=== PATIENT | female | born 1990 | race Caucasian/White ===

== ENCOUNTER 2019-12-05 09:38 | Day surgery (SDC) | payer OTHER, SELFPAY ==
[2019-12-05 05:18] VITALS: BMI 39.5
[2019-12-05 10:00] LABS: MANUAL DIFF FLAG NO
[2019-12-05 10:07] LABS: Basophils Absolute Auto 0.1 X10*3/uL (0.0-0.2); Basophils Percent Auto 0.7 % (0-2); Eosinophils Absolute Auto 0.1 X10*3/uL (0.0-0.4); Hemoglobin 11.3 g/dl (12.0-16.0); Imm Gran Abs Auto 0.03 X10*3/uL (0.00-0.03); Imm Gran Pct Auto 0.3 % (0.0-0.4); Lymphocytes Absolute Auto 2.5 X10*3/uL (1.2-4.9); Lymphocytes Percent Auto 24.6 % (20-40); Mean Corpuscular HGB Conc 31.4 g/dl (31.0-35.0); Mean Corpuscular Hemoglobin 26.3 pg (27.0-33.0); Mean Corpuscular Volume 83.7 fL (80-98); Mean Platelet Volume 9.9 fL (9.4-12.3); Monocytes Absolute Auto 0.7 X10*3/uL (0.1-1.2); Monocytes Percent Auto 6.6 % (2-11); Neutrophils Absolute Auto 6.8 X10*3/uL (2.0-8.3); Neutrophils Percent Auto 66.8 % (45-73); Platelet Count 433 X10*3/uL (160-400); White Blood Count 10.1 X10*3/uL (4.8-10.8)
[2019-12-05 10:08] VITALS: BP 132/83; PULSE 71; RESP 16; TEMP 36.7; O2SAT 100
[2019-12-05 10:15] LABS: INTERNATIONAL NORM RATIO 1.1 (0.9-1.1); Prothrombin Time 12.8 SEC (10.8-13.0)
[2019-12-05 10:18] LABS: Partial Thromboplastin Time 34.5 SEC (24.1-38.0)
--- NOTE | 2019-12-05 10:57 | FL_ITS ---
EXAMINATION: XR LUMBAR PUNCTURE CLINICAL INFORMATION: Papilledema. COMPARISON: None. TECHNIQUE/FINDINGS: Procedure and risks and benefits including bleeding, infection and headache were discussed with the patient and informed consent was obtained. Patient was positioned in the prone position. The left back was prepped and draped in usual sterile fashion. Using fluoroscopic guidance and a 22-gauge spinal needle, left-sided interlaminar access at the L2-L3 level was obtained. Opening pressure was 26 cm of water. 8 mL of clear CSF fluid was removed. Diagnostic specimen was sent. FLUOROSCOPY TIME: 1 minute. DOSE AREA PRODUCT: 1.808 Gy-cm2. IMPRESSION: Fluoroscopy-guided lumbar puncture.
--- NOTE | 2019-12-05 12:02 | PM.EVENT ---
Event Note Event Note: LP performed. Opening pressure 26 cm h2o. 8 ml of clear CSF fluid removed.
[2019-12-05 12:05] VITALS: BP 122/70; PULSE 60; RESP 20; TEMP 36.6; O2SAT 99
[2019-12-05 12:35] VITALS: BP 118/65; PULSE 61; RESP 20; O2SAT 99
[2019-12-05 12:49] LABS: Appearance CSF CLEAR; CSF Tube # 1
[2019-12-05 13:05] VITALS: BP 110/65; PULSE 60; RESP 20; O2SAT 100
[2019-12-05 13:07] LABS: Appearance CSF CLEAR
[2019-12-05 13:08] LABS: CSF Monos 0 %; CSF Other Cells % 0 %; CSF Tube # 4; Color CSF COLORLESS; Lymphocytes CSF 90 %; Neutrophils CSF 10 %; Red Blood Cell CSF 0 MM*3; White Blood Cell CSF 4 MM*3
[2019-12-05 13:24] LABS: Glucose CSF 61 mg/dL; Total Protein CSF 22.5 mg/dL (15-45)
[2019-12-05 13:35] VITALS: BP 105/66; PULSE 51; RESP 20; O2SAT 99
[2019-12-05 14:00] VITALS: BP 124/73; PULSE 62; RESP 20; TEMP 36.8; O2SAT 100
[2019-12-05 14:13] LABS: Oligoclonal Serum Yes
[2019-12-10 09:17] LABS: Albumin 3.7 g/dL (3.5-5.2); Albumin, CSF 12.9 mg/dL (8.0-42.0); IgG 1370 mg/dL (600-1640); IgG, CSF 2.2 mg/dL (0.8-7.7)
== END 2019-12-05 23:59 | disposition home or self-care (01) ==
PROVIDERS: Psychiatry & Neurology Neurology; Radiology Diagnostic Radiology; PCP Physician Assistant; Visit Provider Psychiatry & Neurology Neurology
PROC: 009U3ZZ Drainage of Spinal Canal, Percutaneous Approach (ICD-10-PCS; CPT 62270; principal; 2019-12-05 11:00)
DX: H47.10 Unspecified papilledema (principal); G93.2 Benign intracranial hypertension; D50.9 Iron deficiency anemia, unspecified; E66.9 Obesity, unspecified; Z68.39 Body mass index [BMI] 39.0-39.9, adult; Z79.899 Other long term (current) drug therapy; Z88.8 Allergy status to other drugs, medicaments and biological substances
CPT/HCPCS: 36415; 62328; 82042; 82945; 83916; 84157; 85025; 85610; 85730; 87015; 87070; 87205; 89051

== ENCOUNTER 2022-04-05 10:12 | Outpatient (REF) | payer OTHER, SELFPAY ==
[2022-04-05 12:28] LABS: Erythrocyte Sedimentation Rate 28 MM/HR (0-20)
[2022-04-06 17:08] LABS: Lyme Abs Screen <0.90 index
[2022-04-07 13:23] LABS: Anti Nuclear Antibody Screen NEGATIVE (NEGATIVE)
[2022-04-11 21:29] LABS: Treponema pallidum Ab FTA ABS Nonreactive (Nonreactive)
== END 2022-04-05 10:13 | disposition home or self-care (01) ==
LOC: HO.LAB 10:12
PROVIDERS: PCP Physician Assistant; Visit Provider Psychiatry & Neurology Neurology
DX: G40.309 Generalized idiopathic epilepsy and epileptic syndromes, not intractable, without status epilepticus (principal)
CPT/HCPCS: 36415; 85652; 86038; 86039; 86617; 86618; 86780